=== PATIENT | female | born 1985 | race Caucasian/White ===

== ENCOUNTER 2017-11-01 16:28 | Emergency (ER) | payer BC, OTHER ==
[2017-11-01 16:47] VITALS: BP 116/82; PULSE 91; RESP 18; TEMP 98.9; O2SAT 98
--- NOTE | 2017-11-01 17:18 | ED PDOC ---
HPI: Influenza Time Seen by Provider: 11/01/17 17:12 Chief Complaint: Cough, Cold, Congestion Past Medical History Vital Signs: Last Vital Signs Temp 98.9 F 11/01/17 16:44 Pulse 91 H 11/01/17 16:44 Resp 18 11/01/17 16:44 BP 116/82 11/01/17 16:44 Pulse Ox 98 11/01/17 16:44 - Family History Family History: States: Unknown Family Hx - Home Medications Home Medications: Ambulatory Orders Medication Instructions Recorded Vitamins [ 1 Plus 1 tab PO DAILY #30 tab 06/10/14 Iron] Naproxen 375 mg PO Q8 PRN #21 tab 01/07/15 Fluticasone Nasal [Flonase] 1 actuation NS BID #1 bottle 05/27/15 Promethazine DM [Phenergan DM Oral 5 ml PO Q6H PRN #150 dose 05/27/15 Syrup] - Allergies Allergies/Adverse Reactions: Allergies Allergy/AdvReac Type Severity Reaction Status Date / Time No Known Allergies Allergy Verified 05/27/15 16:20 - ECG O2 Sat by Pulse Oximetry: 98 Disposition - Disposition
--- NOTE | 2017-11-01 17:46 | ED PDOC ---
HPI: CCC, URI, Sore Throat Time Seen by Provider: 11/01/17 17:12 Chief Complaint (Nursing): Cough, Cold, Congestion Chief Complaint (Provider): Cough, Cold, Congestion History Per: Patient History/Exam Limitations: no limitations Onset/Duration Of Symptoms: Days (x5) Current Symptoms Are (Timing): Still Present Additional Complaint(s): 32 year old female with a history of anemia presents to the emergency room complaining of a cough productive of white sputum onset four days ago. She denies hemoptysis and sore throat, but reports a mild runny nose, nasal congestion, subjective fever, body aches, and chills. The patient states that she has been taking tylenol and drinking tea with honey with no relief, having to miss work. PMD: none provided Past Medical History Reviewed: Historical Data, Nursing Documentation, Vital Signs Vital Signs: Last Vital Signs Temp 98.9 F 11/01/17 16:44 Pulse 91 H 11/01/17 16:44 Resp 18 11/01/17 16:44 BP 116/82 11/01/17 16:44 Pulse Ox 98 11/01/17 18:14 - Medical History PMH: Anemia - Family History Family History: States: Diabetes, Other Other Family History: asthma - Social History Current smoker - smoking cessation education provided: Yes Alcohol: Occasional - Home Medications Home Medications: Ambulatory Orders Medication Instructions Recorded Vitamins [ 1 Plus 1 tab PO DAILY #30 tab 06/10/14 Iron] Naproxen 375 mg PO Q8 PRN #21 tab 01/07/15 Fluticasone Nasal [Flonase] 1 actuation NS BID #1 bottle 05/27/15 Promethazine DM [Phenergan DM Oral 5 ml PO Q6H PRN #150 dose 05/27/15 Syrup] Albuterol Sulfate [Proventil Hfa] 2 puff IH Q4 PRN #1 inhaler 11/01/17 Benzonatate [Tessalon Perle] 200 mg PO TID PRN #30 capsule 11/01/17 Promethazine HCl/Codeine 10 ml PO Q6 PRN #120 ml 11/01/17 [Prometh-Codein 6.25-10 mg/5 ml] - Allergies Allergies/Adverse Reactions: Allergies Allergy/AdvReac Type Severity Reaction Status Date / Time No Known Allergies Allergy Verified 05/27/15 16:20 Review of Systems ROS Statement: Except As Marked, All Systems Reviewed And Found Negative Constitutional: Positive for: Fever, Chills, Other (body aches) ENT: Positive for: Nose Discharge, Nose Congestion. Negative for: Throat Pain Respiratory: Positive for: Cough, Sputum (white, non bloody). Negative for: Hemoptysis Physical Exam - Reviewed Nursing Documentation Reviewed: Yes Vital Signs Reviewed: Yes - Physical Exam Appears: Positive for: Well, No Acute Distress Head Exam: Positive for: ATRAUMATIC, NORMOCEPHALIC Skin: Positive for: Warm, Dry Eye Exam: Positive for: EOMI, PERRL ENT: Positive for: Pharynx Is (well appearing), Other (boggy turbinates). Negative for: Sinus Pain/Drainage (no tenderness upon palpation), Pharyngeal Erythema Neck: Positive for: Painless ROM, Supple Cardiovascular/Chest: Positive for: Regular Rate, Rhythm. Negative for: Murmur Respiratory: Positive for: Wheezing (expiratory on left side). Negative for: Accessory Muscle Use, Respiratory Distress Gastrointestinal/Abdominal: Positive for: Soft. Negative for: Tenderness Back: Positive for: Normal Inspection. Negative for: Decreased ROM Extremity: Positive for: Normal ROM. Negative for: Deformity Lymphatic: Negative for: Adenopathy Neurologic/Psych: Positive for: Alert. Negative for: Motor/Sensory Deficits - ECG O2 Sat by Pulse Oximetry: 98 (RA) Pulse Ox Interpretation: Normal Medical Decision Making Medical Decision Making: Initial Impression: Cough DDx includes but is not limited to: Upper respiratory infection, bronchitis, pneumonia, reactive airway disease, seasonal allergies Time: 17:26 Initial Plan: -- Chest XR (PA/ LAT) Time: 18:12 Chest XR, interpreted by provider --No infiltrate --No effusion --No acute findings Scribe Attestation: Documented by Sandy Bullard, acting as a scribe for Angy Galloway MD Provider Scribe Attestation: All medical entries made by the Scribe were at my direction and personally dictated by me. I have reviewed the chart and agree that the record accurately reflects my personal performance of the history, physical exam, medical decision making, and the department course for this patient. I have also personally directed, reviewed, and agree with the discharge instructions and disposition. Disposition - Clinical Impression Clinical Impression: Influenza-like illness, Bronchitis Counseled Patient/Family Regarding: Studies Performed, Diagnosis, Need For Followup, Rx Given - Disposition Referrals: [facility] [place] [Outside] (FOLLOW UP AT CLINIC IN 3-4 DAYS FOR REEVALUATION) Disposition: Routine/Home Disposition Time: 18:00 Condition: STABLE Prescriptions: Albuterol Sulfate [Proventil Hfa] 2 puff IH Q4 PRN #1 inhaler PRN Reason: chest tightness Benzonatate [Tessalon Perle] 200 mg PO TID PRN #30 capsule PRN Reason: Cough Promethazine HCl/Codeine [Prometh-Codein 6.25-10 mg/5 ml] 10 ml PO Q6 PRN #120 ml PRN Reason: SEVERE COUGH ONLY Instructions: Acute Bronchitis, Viral Syndrome (DC) Forms: [facility] ED School/Work Excuse
--- NOTE | 2017-11-01 18:39 | RAD ---
HISTORY: COMPARISON: 05/27/2015. TECHNIQUE: Chest PA and lateral FINDINGS: LINES AND TUBES: None. LUNG AND PLEURA: The lungs are well inflated and clear. HEART AND MEDIASTINUM: The heart is not enlarged. The hilar and mediastinal contours are within normal limits. SKELETAL STRUCTURES: The bony structures are within normal limits for the patient's age. VISUALIZED UPPER ABDOMEN: Normal. OTHER FINDINGS: None. IMPRESSION: No active pulmonary disease.
== END 2017-11-01 18:39 | disposition home or self-care (01) ==
LOC: H.ER 16:28
DX: J11.1 Influenza due to unidentified influenza virus with other respiratory manifestations (principal); J40 Bronchitis, not specified as acute or chronic; F17.200 Nicotine dependence, unspecified, uncomplicated

== ENCOUNTER 2017-12-18 08:05 | Emergency (ER) | payer OTHER ==
[2017-12-18 08:15] VITALS: BP 114/79; PULSE 77; RESP 19; TEMP 98.5; O2SAT 100
--- NOTE | 2017-12-18 09:14 | ED PDOC ---
HPI: Skin/Bite Injury Time Seen by Provider: 12/18/17 08:26 Chief Complaint (Nursing): Abnormal Skin Integrity Chief Complaint (Provider): Itchy, possible rash History Per: Patient History/Exam Limitations: no limitations Onset/Duration Of Symptoms: Days (x2) Current Symptoms Are (Timing): Still Present Additional Complaint(s): 32 year old female presents to the ED complaining of being itchy and having a possible rash after being exposed to her partner's scabies. Patient does not have any noticeable rash or lesions, but is worried because she is itchy. PMD: Anusha Dodson Past Medical History Reviewed: Historical Data, Nursing Documentation, Vital Signs Vital Signs: Last Vital Signs Temp 98.5 F 12/18/17 08:14 Pulse 77 12/18/17 08:14 Resp 19 12/18/17 08:14 BP 114/79 12/18/17 08:14 Pulse Ox 100 12/18/17 08:14 - Medical History PMH: Anemia - Surgical History Surgical History: No Surg Hx - Family History Family History: States: Diabetes - Social History Ex-Smoker (has not smoked in the last 12 months): Yes Alcohol: None Drugs: Denies - Immunization History Hx Tetanus Toxoid Vaccination: No Hx Influenza Vaccination: No - Home Medications Home Medications: Ambulatory Orders Medication Instructions Recorded Vitamins [ 1 Plus 1 tab PO DAILY #30 tab 06/10/14 Iron] Naproxen 375 mg PO Q8 PRN #21 tab 01/07/15 Fluticasone Nasal [Flonase] 1 actuation NS BID #1 bottle 05/27/15 Promethazine DM [Phenergan DM Oral 5 ml PO Q6H PRN #150 dose 05/27/15 Syrup] Albuterol Sulfate [Proventil Hfa] 2 puff IH Q4 PRN #1 inhaler 11/01/17 Benzonatate [Tessalon Perle] 200 mg PO TID PRN #30 capsule 11/01/17 Promethazine HCl/Codeine 10 ml PO Q6 PRN #120 ml 11/01/17 [Prometh-Codein 6.25-10 mg/5 ml] - Allergies Allergies/Adverse Reactions: Allergies Allergy/AdvReac Type Severity Reaction Status Date / Time No Known Allergies Allergy Verified 12/18/17 08:28 Review of Systems ROS Statement: Except As Marked, All Systems Reviewed And Found Negative Skin: Positive for: Other (itching) Physical Exam - Reviewed Nursing Documentation Reviewed: Yes Vital Signs Reviewed: Yes - Physical Exam Appears: Positive for: No Acute Distress Head Exam: Positive for: ATRAUMATIC, NORMOCEPHALIC Skin: Positive for: Normal Color, Warm, Dry. Negative for: Rash Neurologic/Psych: Positive for: Alert, Oriented (x3). Negative for: Motor/ Sensory Deficits - ECG O2 Sat by Pulse Oximetry: 100 (RA) Pulse Ox Interpretation: Normal Medical Decision Making Medical Decision Making: Initial Impression: possible allergies Time: 09:04 Initial Plan: --Urine --Benadryl 50mg PO Scribe Attestation: Documented by Sandy Bullard, acting as a scribe for Susi Miranda MD. Provider Scribe Attestation: All medical entries made by the Scribe were at my direction and personally dictated by me. I have reviewed the chart and agree that the record accurately reflects my personal performance of the history, physical exam, medical decision making, and the department course for this patient. I have also personally directed, reviewed, and agree with the discharge instructions and disposition. Disposition - Disposition
== END 2017-12-18 11:08 | disposition home or self-care (01) ==
LOC: H.ER 08:05
DX: B86 Scabies (principal)

== ENCOUNTER 2018-07-07 22:09 | Emergency (ER) | payer SELFPAY ==
[2018-07-07 23:35] VITALS: O2SAT 99
[2018-07-08] MEDS ORDERED: Promethazine/Cod 6.25mg-10mg/5ml Syr UD PO STA (01:27)
[2018-07-08] MEDS ORDERED: Albuterol-Ipratrop 3 mg / 0.5 (3 ml) UD INH STA (01:27)
[2018-07-08] MEDS ORDERED: Promethazine/Cod 6.25mg-10mg/5ml Syr UD ONE (01:35)
[2018-07-08] MEDS ORDERED: Albuterol-Ipratrop 3 mg / 0.5 (3 ml) UD ONE (01:35)
--- NOTE | 2018-07-08 01:53 | ED PDOC ---
HPI: CCC, URI, Sore Throat Time Seen by Provider: 07/08/18 00:57 Chief Complaint (Nursing): Flu-like Symptoms Chief Complaint (Provider): Flu-like Symptoms History Per: Patient History/Exam Limitations: no limitations Onset/Duration Of Symptoms: Days (x4) Current Symptoms Are (Timing): Still Present Additional Complaint(s): 32 year old female presents to ED with a complaint of flu-like symptoms including runny nose, dry cough, fever, chills, general bodyaches, and headaches since 07/03/18. She reports taking Tylenol with minimal relief. Patient does not offer further medical complaints and states that she did not get a flu-shot this year. PCP: Dr. Jose Antonio Dodson Past Medical History Reviewed: Historical Data, Nursing Documentation, Vital Signs Vital Signs: Last Vital Signs Temp 98.2 F 07/07/18 23:32 Pulse 97 H 07/07/18 23:32 Resp 16 07/07/18 23:32 BP 128/79 07/07/18 23:32 Pulse Ox 99 07/07/18 23:32 - Medical History PMH: Anemia - Surgical History Surgical History: No Surg Hx - Family History Family History: States: Unknown Family Hx, Diabetes - Social History Current smoker - smoking cessation education provided: Yes (1 pack lasts 1 month) Alcohol: None Drugs: Denies - Immunization History Hx Tetanus Toxoid Vaccination: No Hx Influenza Vaccination: No - Home Medications Home Medications: Ambulatory Orders Medication Instructions Recorded Vitamins [ 1 Plus 1 tab PO DAILY #30 tab 06/10/14 Iron] Naproxen 375 mg PO Q8 PRN #21 tab 01/07/15 Fluticasone Nasal [Flonase] 1 actuation NS BID #1 bottle 05/27/15 Promethazine DM [Phenergan DM Oral 5 ml PO Q6H PRN #150 dose 05/27/15 Syrup] Albuterol Sulfate [Proventil Hfa] 2 puff IH Q4 PRN #1 inhaler 11/01/17 Benzonatate [Tessalon Perle] 200 mg PO TID PRN #30 capsule 11/01/17 Promethazine HCl/Codeine 10 ml PO Q6 PRN #120 ml 11/01/17 [Prometh-Codein 6.25-10 mg/5 ml] DiphenhydrAMINE [Benadryl] 50 mg PO Q8H PRN #15 cap 12/18/17 Albuterol Sulfate [Proair Hfa] 0.09 mg IH Q6 PRN #1 inh 07/08/18 Azithromycin [Zithromax] 250 mg PO QAM #1 pkg 07/08/18 Benzonatate [Tessalon Perle] 100 mg PO TID PRN #15 capsule 07/08/18 - Allergies Allergies/Adverse Reactions: Allergies Allergy/AdvReac Type Severity Reaction Status Date / Time No Known Allergies Allergy Verified 07/07/18 23:32 Review of Systems ROS Statement: Except As Marked, All Systems Reviewed And Found Negative Constitutional: Positive for: Fever, Chills, Other (general bodyaches) ENT: Positive for: Nose Discharge Respiratory: Positive for: Cough (dry) Neurological: Positive for: Headache Physical Exam - Reviewed Nursing Documentation Reviewed: Yes Vital Signs Reviewed: Yes - Physical Exam Appears: Positive for: Non-toxic, Uncomfortable Head Exam: Positive for: ATRAUMATIC, NORMAL INSPECTION, NORMOCEPHALIC Skin: Positive for: Normal Color Eye Exam: Positive for: Normal appearance, EOMI, PERRL ENT: Positive for: Normal ENT Inspection. Negative for: Pharyngeal Erythema, Tonsillar Swelling Neck: Positive for: Normal, Supple Cardiovascular/Chest: Positive for: Regular Rate, Rhythm Respiratory: Positive for: Decreased Breath Sounds (diminshed airway entry bilaterally). Negative for: Respiratory Distress Gastrointestinal/Abdominal: Positive for: Normal Exam Extremity: Positive for: Normal ROM (upper/lower) Neurologic/Psych: Positive for: Alert, Oriented. Negative for: Motor/Sensory Deficits - ECG O2 Sat by Pulse Oximetry: 99 (RA) Pulse Ox Interpretation: Normal Medical Decision Making Medical Decision Making: Initial Impression: 32 year old female with flu-like symptoms. Initial Plan: * Urine * Urine dipstick * CXR * Duoneb 6ml INH * Phenergan/codeine 10ml PO * Influenza A B Time: 329 --CXR: (-) active disease. Negative for influenza. Upon provider reevaluation, patient is medically stable, reports improvement in symptoms, and requires no further treatment in the ED at this time. Patient will be discharged home with Rx for Proair HFA, Zithromax, and Tessalon Perle. Counseling was provided and all questions were answered regarding diagnosis. There is agreement to discharge plan. Return if symptoms persist or worsen. Clinical Impression: Influenza-like symptoms; Bronchitis Scribe Attestation: Documented by Sophie Zamora, acting as a scribe for Isaiah Grant MD. Provider Scribe Attestation: All medical record entries made by the Scribe were at my direction and personally dictated by me. I have reviewed the chart and agree that the record accurately reflects my personal performance of the history, physical exam, medical decision making, and the department course for this patient. I have also personally directed, reviewed, and agree with the discharge instructions and disposition. Disposition - Clinical Impression Clinical Impression: Bronchitis, Influenza-like symptoms - Patient ED Disposition Is Patient to be Admitted: No Counseled Patient/Family Regarding: Studies Performed, Diagnosis - Disposition Disposition: Routine/Home Disposition Time: 03:30 Condition: STABLE Prescriptions: Albuterol Sulfate [Proair Hfa] 0.09 mg IH Q6 PRN #1 inh PRN Reason: Shortness Of Breath Azithromycin [Zithromax] 250 mg PO QAM #1 pkg Benzonatate [Tessalon Perle] 100 mg PO TID PRN #15 capsule PRN Reason: Cough Instructions: Acute Bronchitis Forms: [employer] (Turkish), [facility] ED School/Work Excuse
[2018-07-08 03:39] VITALS: BP 115/60; PULSE 96; RESP 18; TEMP 98.9
--- NOTE | 2018-07-08 07:50 | RAD ---
Date of service: 07/08/2018 HISTORY: cough COMPARISON: Chest radiographs 11/01/2017. TECHNIQUE: Chest PA and lateral FINDINGS: LUNGS: No active pulmonary disease. PLEURA: No significant pleural effusion identified. No pneumothorax apparent. CARDIOVASCULAR: No aortic atherosclerotic calcification present. Normal cardiac size. No pulmonary vascular congestion. OSSEOUS STRUCTURES: No significant abnormalities. VISUALIZED UPPER ABDOMEN: Normal. OTHER FINDINGS: None. IMPRESSION: No interval acute cardiopulmonary disease appreciated.
== END 2018-07-08 03:41 | disposition home or self-care (01) ==
LOC: H.ER 22:09
DX: J40 Bronchitis, not specified as acute or chronic (principal); J11.1 Influenza due to unidentified influenza virus with other respiratory manifestations